=== PATIENT | male | born 1990 | race Caucasian/White ===

== ENCOUNTER 2018-04-27 03:23 | Emergency (ER) | payer OTHER ==
[~2018-04-27] VITALS: Ht 182.9 cm; Wt 127.3 kg
[2018-04-27] MEDS ORDERED: IBUP80TA PO (06:26)
[2018-04-27] MEDS ORDERED: IBUPROFEN 800 MG TAB PO ONE (06:30)
[2018-04-27 06:39] VITALS: BP 147/86
== END 2018-04-27 06:40 | disposition home or self-care (01) ==
LOC: M ED 03:23
DX: S02.5XXA Fracture of tooth (traumatic), initial encounter for closed fracture (principal); X58.XXXA Exposure to other specified factors, initial encounter; Y92.89 Other specified places as the place of occurrence of the external cause; J02.9 Acute pharyngitis, unspecified

== ENCOUNTER → 2019-11-01 | Outpatient (REF) | payer OTHER ==
[~2019-11-01] MED LIST: IBUP80TA PO
[2019-11-01 09:58] LABS: SEMEN APPEARANCE OPAQUE (OPAQUE); SEMEN VISCOSITY LIQUID (LIQUID); SEMEN VOLUME 3.6 ml (2.0-5.0); SEMEN pH 8.5 (7.0-8.0); WBC CONCENTRATION <=1 M/ml (<=1 M/ml)
== END ==
LOC: M SMT 09:18
PROVIDERS: ATTEND Urology
DX: Z98.52 Vasectomy status (principal)